=== PATIENT | female | born 1940 | race Caucasian/White ===

== ENCOUNTER 2022-11-18 13:27 | Observation (INO) | payer MEDICARE ==
[~2022-11-18 13:27] MED LIST: Iopamidol 370 76% 100 ML VIAL ONE
[2022-11-18 14:02] LABS: #Basophils 0.1 10x3/uL (0.0-0.2); #Eosinphils 0.1 10x3/uL (0.0-0.5); #Monocytes 0.9 10x3/uL (0.0-1.1); #Neutrophils 7.5 10x3/uL (1.5-8.4); %Basophils 0.7 % (0.0-2.0); %Eosinophils 0.8 % (0.0-6.0); %Lymphocytes 18.1 % (18.0-47.0); %Monocytes 8.3 % (0.0-10.0); %Neutrophils 71.8 % (40.0-75.0); Hematocrit 38.7 % (34.9-44.5); Hemoglobin 13.7 g/dL (12.0-15.5); Mean Corpuscular HGB CONC 35.4 g/dL (32.0-36.0); Mean Corpuscular Hemoglobin 30.5 pg (27.0-33.0); Mean Corpuscular Volume 86.2 fl (81.6-98.3); Mean Platelet Volume 10.5 fl (7.4-10.4); Platelet Count 298 10x3/uL (150-450); RBC Distribution Width 12.6 % (11.5-14.5); Red Blood Cell (RBC) Count 4.49 10x6/uL (3.90-5.03); White Blood Cell (WBC) Count 10.5 10x3/uL (3.5-10.5)
[2022-11-18 14:16] LABS: ALT (SGPT) 31 U/L (8-55); AST (SGOT) 29 U/L (5-34); Albumin 4.5 g/dL (3.4-4.8); Alkaline Phosphatase 88 U/L (40-110); Anion Gap 17 mmol/L (10-20); BUN (Urea Nitrogen) 16 mg/dL (9.8-20.1); Bilirubin, Total 0.4 mg/dL (0.2-1.2); Calc. Creatinine Clearance 0 mL/min (70-130); Calcium 9.1 mg/dL (7.8-10.44); Carbon Dioxide 22 mmol/L (23-31); Chloride 103 mmol/L (98-107); Estimated GFR 61; Globulin 2.6 g/dL (2.4-3.5); Glucose 177 mg/dL (83-110); Lipase 52 U/L (8-78); Potassium 4.5 mmol/L (3.5-5.1); Protein, Total 7.1 g/dL (5.8-8.1); Sodium 137 mmol/L (136-145)
[2022-11-18] MEDS ORDERED: Morphine 2 MG/ML VIAL ONE (14:19)
[2022-11-18 14:21] LABS: Troponin I Less than 0.010 ng/mL (< 0.028)
[2022-11-18] MEDS ORDERED: Acetaminophen 325 MG TAB PO PRN (17:35)
[2022-11-18] MEDS ORDERED: Nitroglycerin 0.4 MG TAB (25 Tab Bottle) SL PRN (17:35)
[2022-11-18] MEDS ORDERED: Guaifenesin DM 100-10/5 ML UDCUP PO PRN (17:35)
[2022-11-18] MEDS ORDERED: hydrALAZINE 20 MG/ML VIAL SLOW IVP PRN (17:39)
[2022-11-18] MEDS ORDERED: Aspirin 325 mg Enteric Coated Tablet ONE (17:48)
[2022-11-18 18:42] LABS: Troponin I Less than 0.010 ng/mL (< 0.028)
[2022-11-18 21:04] LABS: Troponin I Less than 0.010 ng/mL (< 0.028)
[2022-11-18] MEDS ORDERED: Dextrose 50% Abboject 50 ML SYRINGE SLOW IVP PRN (22:08)
[2022-11-18] MEDS ORDERED: Insulin Regular 300 UNITS/3 ML VIAL SC PRN (22:08)
[2022-11-18] MEDS ORDERED: Glucagon 1 MG/ML KIT IM PRN (22:08)
[2022-11-18] MEDS ORDERED: Dextrose 5% in Water 1,000 ML IV PRN (22:08)
[2022-11-18] MEDS ORDERED: Rosuvastatin 20 MG TAB PO SCH (23:00)
[2022-11-18] MEDS ORDERED: Famotidine 20 MG TAB PO SCH (23:00)
[2022-11-18 23:33] VITALS: BMI 21.5
[2022-11-19 05:29] LABS: #Basophils 0.1 10x3/uL (0.0-0.2); #Eosinphils 0.2 10x3/uL (0.0-0.5); #Monocytes 0.7 10x3/uL (0.0-1.1); #Neutrophils 2.2 10x3/uL (1.5-8.4); %Basophils 1.4 % (0.0-2.0); %Eosinophils 4.1 % (0.0-6.0); %Neutrophils 46.3 % (40.0-75.0); Hematocrit 34.5 % (34.9-44.5); Hemoglobin 12.1 g/dL (12.0-15.5); Mean Corpuscular HGB CONC 35.1 g/dL (32.0-36.0); Mean Corpuscular Hemoglobin 30.2 pg (27.0-33.0); Mean Platelet Volume 10.5 fl (7.4-10.4); Platelet Count 249 10x3/uL (150-450); RBC Distribution Width 12.8 % (11.5-14.5); Red Blood Cell (RBC) Count 4.01 10x6/uL (3.90-5.03); White Blood Cell (WBC) Count 4.9 10x3/uL (3.5-10.5)
[2022-11-19 05:38] LABS: Anion Gap 13 mmol/L (10-20); BUN (Urea Nitrogen) 10 mg/dL (9.8-20.1); Calc. Creatinine Clearance 55 mL/min (70-130); Calcium 8.7 mg/dL (7.8-10.44); Carbon Dioxide 21 mmol/L (23-31); Cardiac Risk 2.7 (Less than 4.5); Chloride 108 mmol/L (98-107); Cholesterol 153 mg/dl (< 200 Desired); Estimated GFR 87; Glucose 97 mg/dL (83-110); HDL Cholesterol 56 mg/dL (>60 Neg Risk); LDL Cholesterol, Calculated 86 mg/dL; Potassium 3.9 mmol/L (3.5-5.1); Sodium 138 mmol/L (136-145); Triglycerides 53 mg/dL (Less than 150)
[2022-11-19] MEDS ORDERED: Lisinopril 2.5 MG TAB PO SCH (09:00)
[2022-11-19] MEDS ORDERED: Aspirin Chewable 81 MG TAB PO SCH (09:00)
[2022-11-19] MEDS ORDERED: Famotidine 20 MG TAB PO SCH (09:00)
[2022-11-19] MEDS ORDERED: Amlodipine 5 MG TAB PO SCH (09:00)
[2022-11-19 12:03] VITALS: TEMP 98.3
[2022-11-19] MEDS ORDERED: Iopamidol 300 61% 100 ML VIAL FS ONE (12:15)
[2022-11-19 13:03] LABS: Hemoglobin A1c 5.7 % (4.0-6.0)
[2022-11-19 14:50] VITALS: BP 110/69
[2022-11-19] MEDS ORDERED: Rosuvastatin 20 MG TAB PO SCH (21:00)
[2022-11-19] MEDS ORDERED: Atorvastatin Calcium 40 MG TAB PO SCH (21:00)
== END 2022-11-19 16:15 | disposition home or self-care (01) ==
LOC: CSHERS 13:27 → CSHTELE 21:08
PROVIDERS: ADMIT Hospitalist; ATTEND Hospitalist
DX: R07.9 Chest pain, unspecified (principal); R00.2 Palpitations; E11.9 Type 2 diabetes mellitus without complications; I10 Essential (primary) hypertension; J45.909 Unspecified asthma, uncomplicated; K11.8 Other diseases of salivary glands; Z79.899 Other long term (current) drug therapy
CPT/HCPCS: 36415; 36416; 70491; 70496; 70498; 70551; 71045; 80048; 80053; 80061; 83036; 83605; 83690; 83735; 84443; 84484; 85025; 93005; 93306; 96360; 96372; G0378; J1650; J2272; Q9967